=== PATIENT | female | born 1980 | race Caucasian/White ===

== ENCOUNTER 2019-05-11 18:50 | Outpatient (CLI) | payer MEDICAID ==
[~2019-05-11] VITALS: Ht 154.9 cm; Wt 99.6 kg
[~2019-05-11 18:50] MED LIST: PREN-19 PO
[2019-05-11 19:47] VITALS: BP 111/57; PULSE 84; RESP 18
[2019-05-11] MEDS ORDERED: ACETAMINOPHEN 500 MG TAB PO STA (21:48)
--- NOTE | 2019-05-11 23:26 | TRIAGE ---
OB Triage Datetime Report Generated by CPN: 05/11/2019 23:26 Datetime: 05/11/2019 21:42 Stage of : OB Triage Heart Rate FHR Baseline Rate: 150 Monitor Mode: External US Variability: Moderate 6-25 bpm Accelerations: 15X15 Decelerations: None Category: Category I Pain Assessment Pain Scale: 5 Pain Type: Cramping Pain Location: Abdomen Datetime: 05/11/2019 21:37 Vaginal Exam Membrane Status: Intact Datetime: 05/11/2019 21:20 Stage of : OB Triage Contraction Comments: uc palpated Heart Rate FHR Baseline Rate: 130 Monitor Mode: External US FHR Baseline Changes: No Baseline Change Variability: Moderate 6-25 bpm Accelerations: 15X15 Decelerations: None Category: Category I Pain Assessment Pain Scale: 6 Pain Type: Cramping Pain Location: Abdomen Datetime: 05/11/2019 20:39 Quality: Mild Resting Tone [place]: Relaxed Heart Rate FHR Baseline Rate: 130 Monitor Mode: External US Pain Assessment Pain Scale: 0 Pain Presence: None/Denies Pain Type: N/A Pain Assessment Comments: Pt states she has felt no pain since arrival at hospital Datetime: 05/11/2019 19:53 Stage of : OB Triage Monitor Mode: External Quality: Mild Pattern: Normal: <= 5 Contractions in 10 Minutes Resting Tone [place]: Relaxed Heart Rate FHR Baseline Rate: 130 Monitor Mode: External US FHR Baseline Changes: No Baseline Change Variability: Moderate 6-25 bpm Accelerations: 15X15 Decelerations: None Category: Category I Datetime: 05/11/2019 19:30 Stage of : OB Triage Time of Arrival: 05/11/2019 18:45 EGA: 32.6 Arrived By: Wheelchair Arrived From: Home Chief Complaint: [id number] c/o lower abd cramping and pelvic pain [id number]. and vag discharge Movement: Present Contractions: Irregular Time Contractions Began: 05/11/2019 02:00 Contractions: q30 Rupture of Membranes: Denies Vaginal Bleeding: None Vaginal Discharge: Present Recent Sexual Intercouse: Denies Abdominal Trauma: Not Applicable Patient Complaints: Cramping Time Provider Notified: 05/11/2019 19:30 Provider Notified: Dr Ryder Initial Plan: EFM,,UA,URINE CULTURE,BPP, CVL,ROM+,PO HYDRATION Labor Evaluation Frequency: x1 Monitor Mode: External Quality: Mild Pattern: Normal: <= 5 Contractions in 10 Minutes Resting Tone [place]: Relaxed Heart Rate FHR Baseline Rate: 130 Monitor Mode: External US FHR Baseline Changes: No Baseline Change Variability: Moderate 6-25 bpm Accelerations: 15X15 Decelerations: None Category: Category I Datetime: 05/11/2019 19:02 Stage of : OB Triage Maternal Assessment Level of Consciousness: Keenly Alert, Responsive Headache: Denies Blurred Vision: No Nausea/Vomiting: Denies RUQ Epigastric Pain: Denies Facial Edema: None Monitor Mode: External Resting Tone [place]: Relaxed Heart Rate FHR Baseline Rate: 135 Monitor Mode: External US Pain Assessment Pain Scale: 5 Pain Presence: Intermittent Pain Type: Cramping Pain Location: Abdomen
--- NOTE | 2019-05-12 04:55 | PN ---
Triage Information Date/Time 05/11/19 Reason for visit: Uterine contractions Weeks of Gestation 32w6d /Para A1 Diabetes: none Hypertention: none Objective Vital Signs Date Temp Pulse Resp B/P (MAP) Pulse Ox O2 O2 Flow FiO2 Time Delivery Rate 05/11/19 98.0 84 18 111/57 Room Air 19:47 (75) Heart Rate: 120's Heart Rate Comments CAT I Contractions: >10 Minutes Apart Results/Medications Results 24 hrs Laboratory Tests Test 05/11/19 19:55 Urine Color YELLOW Urine Clarity CLEAR Urine pH 7.0 Urine Specific [place] 1.008 Urine Ketones NEGATIVE Urine Nitrite NEGATIVE Urine Bilirubin NEGATIVE Urine Urobilinogen NEGATIVE Urine Leukocyte Esterase NEGATIVE Urine Microscopic RBC 1 Urine Microscopic WBC 1 Urine Squamous Epithelial Cells FEW Urine Hemoglobin 1+ H Urine Glucose NEGATIVE Urine Total Protein NEGATIVE Membranes Rupture NEGATIVE Medications Tylenol 1000mg Imaging Results BPP 8 BECKY 13.5 CVL 4.2 Disposition: Discharge Assessment/Plan A IUP 32w6d R/O PTL resolved P discharge home with routine labor instructions YANIRA YIN MD May 12, 2019 04:55
== END 2019-05-11 22:40 | disposition home or self-care (01) ==
LOC: OBT 18:50 → L-D 18:51 → OBT 22:40
PROVIDERS: ATTEND Specialist
DX: O62.9 Abnormality of forces of labor, unspecified (principal); Z3A.32 32 weeks gestation of pregnancy
CPT/HCPCS: 76817; 76818; 81001; 84112; 87086; Z7500; Z7610; G0463

== ENCOUNTER 2019-06-28 05:09 | Inpatient (IN) | payer MEDICAID ==
[~2019-06-28] VITALS: Ht 154.9 cm; Wt 103.6 kg
[2019-06-28] MEDS ORDERED: LIDOCAINE 1% (MPF) 30 ML INJ INJ PRN (05:30)
[2019-06-28] MEDS ORDERED: METHYLERGONOVINE 0.2 MG INJ IM PRN ×2 (05:30→09:00)
[2019-06-28] MEDS ORDERED: BUTORPHANOL 2 MG INJ IV PRN (05:30)
[2019-06-28] MEDS ORDERED: MISOPROSTOL 200 MCG TAB PR PRN ×2 (05:30→09:00)
[2019-06-28] MEDS ORDERED: OXYTOCIN 30 UNITS/LR 500 ML IV SCH ×3 (05:30→08:37)
[2019-06-28] MEDS ORDERED: IBUPROFEN 600 MG TAB PO PRN (05:30)
[2019-06-28] MEDS ORDERED: OXYTOCIN 30 UNITS/LR 500 ML IV PRN ×2 (05:30→09:00)
[2019-06-28] MEDS ORDERED: CARBOPROST 250 MCG INJ IM PRN ×2 (05:30→09:00)
[2019-06-28] MEDS ORDERED: AMPICILLIN 2 GM/NS (PMX) 100 ML IV ONE (05:30)
[2019-06-28 05:36] VITALS: Ht 154.9 cm; Wt 103.6 kg
[2019-06-28] MEDS: LACTATED RINGER'S 1,000 ML IV SCH ×3 (05:58→22:57)
[2019-06-28] MEDS ORDERED: MINERAL OIL LIGHT 10 ML VIAL TOP ONE (07:30)
[2019-06-28] MEDS ORDERED: WITCH HAZEL/GLYCERIN PAD PR PRN (09:00)
[2019-06-28] MEDS ORDERED: ONDANSETRON 4 MG INJ IV PRN (09:00)
[2019-06-28] MEDS ORDERED: NACL 0.9% 3 ML SYG IV SCH (09:00)
[2019-06-28] MEDS ORDERED: LANOLIN HPA 1 PKT TOP PRN (09:00)
[2019-06-28] MEDS ORDERED: BENZOCAINE 20% 56 ML SPRAY TOP PRN (09:00)
[2019-06-28] MEDS ORDERED: DIPHENHYDRAMINE 25 MG CAP PO PRN (09:00)
[2019-06-28] MEDS ORDERED: MAGNESIUM HYDROXIDE 30ML CUP PO PRN (09:00)
[2019-06-28] MEDS ORDERED: AMPICILLIN 1 GM/NS (PMX) 50 ML IV SCH (09:30)
[2019-06-28 09:50] VITALS: BP 103/60; PULSE 71; RESP 18
[2019-06-28] MEDS: HYDROCODONE/APAP (5/325) TAB PO PRN ×3 (10:53→22:57)
[2019-06-28] MEDS ORDERED: morphine 2 MG INJ IV STA (11:31)
[2019-06-28] MEDS: IBUPROFEN 600 MG TAB GTB SCH ×3 (12:00→18:08)
[2019-06-28 16:00] VITALS: BP 120/75; PULSE 62; RESP 20
[2019-06-28] MEDS: SENNA/DOCUSATE NA (8.6MG/50MG) TAB PO PRN (17:10)
[2019-06-28] MEDS ORDERED: morphine 2 MG INJ IV PRN (17:30)
[2019-06-28 20:00] VITALS: BP 100/61; PULSE 63; RESP 18
[2019-06-29] VITALS: BP 91/53; PULSE 64; RESP 19
[2019-06-29] MEDS: IBUPROFEN 600 MG TAB GTB SCH ×2 (00:03→05:40)
[2019-06-29 04:00] VITALS: BP 94/59; PULSE 62; RESP 18
[2019-06-29] MEDS: LACTATED RINGER'S 1,000 ML IV SCH ×2 (05:23→13:23)
[2019-06-29] MEDS: SENNA/DOCUSATE NA (8.6MG/50MG) TAB PO PRN (05:39)
[2019-06-29 08:00] VITALS: BP 99/55; PULSE 56; RESP 16
[2019-06-29] MEDS: ACETAMINOPHEN 325 MG TAB PO PRN ×2 (08:07→15:14)
[2019-06-29] MEDS: IBUPROFEN 600 MG TAB PO SCH ×3 (11:34→23:38)
[2019-06-29 15:21] VITALS: BP 93/55; PULSE 74; RESP 16
[2019-06-29 19:50] VITALS: BP 106/62; PULSE 67; RESP 19
[2019-06-29] MEDS: HYDROCODONE/APAP (5/325) TAB PO PRN (22:02)
[2019-06-30 04:00] VITALS: BP 102/61; PULSE 60; RESP 18
[2019-06-30] MEDS: IBUPROFEN 600 MG TAB PO SCH ×2 (05:54→11:49)
[2019-06-30 08:00] VITALS: BP 98/55; PULSE 55; RESP 18
[2019-06-30] MEDS ORDERED: DIPHTH/TET/ACEL PERTUSS (ADULT) 0.5 ML VIAL IM* ONE (09:00)
[2019-06-30] MEDS ORDERED: MEASLES,MUMPS,RUBELLA VACCINE INJ SC* ONE (09:00)
== END 2019-06-30 16:23 | disposition home or self-care (01) | DRG 807 ==
LOC: OBT 05:09 → L-D 05:11 → OBT 05:20 → L-D 05:20 → PP1 10:09
PROVIDERS: ADMIT Obstetrics & Gynecology; ATTEND Specialist
PROC: 10E0XZZ Delivery of Products of Conception, External Approach (ICD-10-PCS; principal; 2019-06-28)
PROC: 3E033VJ Introduction of Other Hormone into Peripheral Vein, Percutaneous Approach (ICD-10-PCS; 2019-06-28)
DX: O69.89X0 Labor and delivery complicated by other cord complications, not applicable or unspecified (principal); Z37.0 Single live birth; Z3A.39 39 weeks gestation of pregnancy
CPT/HCPCS: 85025; 85610; 85730; 86592; 86850; 86900; 86901; 87340; 99464; G0463; J0290; J2270; J2590; J7120